=== PATIENT | male | born 1975 | race Caucasian/White ===

== ENCOUNTER 2016-11-18 17:09 | Emergency (ER) | payer OTHER ==
[2016-11-18 18:07] VITALS: BP 153/96
[2016-11-18] MEDS ORDERED: Ketorolac INJ* 60 MG/2 ML VIAL IM ONE (18:36)
--- NOTE | 2016-11-18 19:09 | UC ---
Back Pain HPI - HPI Summary HPI Summary: Patient has had back pain from a herinated disc for the past few years, it has been exacerbated from lots of snow shoveling the past few weeks, he has a hard time working due to the pain and is wearing a back brace for support. he has had steroid shots and doen PT in the past. - History of Current Complaint Chief Complaint: UCBackPain Stated Complaint: LOWER BACK PAIN Time Seen by Provider: 11/18/16 18:25 Hx Obtained From: Patient Onset/Duration: Gradual Onset, Worse Since - 2 weeks Timing: Constant Severity Initially: Moderate Severity Currently: Severe Back Pain: Is Discrete @ - left lumbar Character: Spasmodic, Stiffness Aggravating: Movement, Lifting, Bending Alleviating: Nothing Associated Signs And Symptoms: Positive: Weakness, Pain with Weight Bearing - Risk Factors AAA Risk Factors: Negative TAD Risk Factors: Negative Cauda Equina Risk Factors: Negative Epidural Abscess Risk Factors: Negative - Allergies/Home Medications Allergies/Adverse Reactions: Allergies Allergy/AdvReac Type Severity Reaction Status Date / Time No Known Allergies Allergy Verified 11/18/16 18:01 Home Medications: Home Medications Acetaminophen 2 tab PO Q12HR PRN 11/18/16 [History Confirmed 11/18/16] PMH/Surg Hx/FS Hx/Imm Hx Previously Healthy: Yes - Surgical History Surgical History: Yes Surgery Procedure, Year, and Place: appendectomy - Family History Known Family History: Negative: Hypertension - Social History Alcohol Use: Rare Substance Use Type: None Smoking Status (MU): Never Smoked Tobacco Review of Systems Constitutional: Negative Skin: Negative Eyes: Negative ENT: Negative Respiratory: Negative Cardiovascular: Negative Gastrointestinal: Negative Genitourinary: Negative Motor: Negative Neurovascular: Negative Musculoskeletal: Arthralgia, Decreased ROM, Edema, Myalgia Neurological: Negative Psychological: Negative All Other Systems Reviewed And Are Negative: Yes Physical Exam Triage Information Reviewed: Yes Appearance: Well-Nourished, Ill-Appearing, Pain Distress Vital Signs: Initial Vital Signs Temp 98.4 F 11/18/16 18:02 Pulse 73 11/18/16 18:02 Resp 18 11/18/16 18:02 BP 153/96 11/18/16 18:02 Pulse Ox 99 11/18/16 18:02 Vital Signs Reviewed: Yes Eye Exam: Normal Eyes: Positive: Conjunctiva Clear ENT Exam: Normal ENT: Positive: Normal ENT inspection, Hearing grossly normal, Pharynx normal, TMs normal Dental Exam: Normal Neck exam: Normal Neck: Positive: Supple, Nontender, No Lymphadenopathy Respiratory Exam: Normal Respiratory: Positive: Chest non-tender, Lungs clear, Normal breath sounds Cardiovascular Exam: Normal Cardiovascular: Positive: RRR, No Murmur, Pulses Normal Abdominal Exam: Normal Abdomen Description: Positive: Nontender, No Organomegaly, Soft Bowel Sounds: Positive: Present Musculoskeletal: Positive: Strength Limited @, ROM Limited @ - in lumbar flx and ext, Edema @ - noted over the spinus process around l1 and l2. pain with palpation. left leg weak with weight bearing Neurological Exam: Normal Neurological: Positive: Alert, Muscle Tone Normal Psychological Exam: Normal Skin Exam: Normal Back Pain Course/Dx - Course Course Of Treatment: hx obtained, exam performed, meds reviewed, I stop consulted. xray neg for acute issues, discussed options for pain management and maintainence. referrals given. - Differential Dx/Diagnosis Differential Diagnosis/HQI/PQRI: Herniated Disc, Strain, Sprain Provider Diagnoses: back spasm. OA of facet joints Discharge - Discharge Plan Condition: Stable Disposition: HOME Prescriptions: Cyclobenzaprine TAB* [Flexeril 10 MG TAB*] 10 mg PO TID PRN #28 tab PRN Reason: Spasms Meloxicam [Mobic] 15 mg PO DAILY #30 tab Patient Education Materials: Acute Low Back Pain (ED) Referrals: No Primary Care Phys,NOPCP [Primary Care Provider] - Raquel Lorenzo DO [Doctor of Osteopathy] - Oscar Linder MD [Medical Doctor] - Additional Instructions: take the medication as prescribed, rest as much as possible. Follow up with referrals as you decided which course to take.
--- NOTE | 2016-11-18 19:43 | RAD ---
Indication: Multiple years low back pain radiating to the RIGHT leg. History of disc degeneration. Comparison: November 27, 2014 radiographs. Technique: AP and lateral views lumbar sacral spine. Report: Straightening relative to normal lumbar lordosis. Negative for fracture or spondylolisthesis at any level. Negative for significant disc space narrowing. Minimal vertebral endplate osteophytosis from L3-L4 caudal. Mild facet joint osteoarthritis at L5-S1. Unremarkable paraspinal soft tissue contours. IMPRESSION: Minimal degenerative spondylosis and facet joint osteoarthritis without significant change. Straightening relative to normal lumbar lordosis.
== END 2016-11-18 20:25 | disposition home or self-care (01) ==
LOC: UCCORT 17:09
DX: M62.830 Muscle spasm of back (principal); M47.816 Spondylosis without myelopathy or radiculopathy, lumbar region
CPT/HCPCS: 72100; 96372; 99212; G0463; J1885

== ENCOUNTER 2017-12-24 09:14 | Emergency (ER) | payer MEDICAID, OTHER ==
[2017-12-24 09:58] VITALS: BP 138/78
--- NOTE | 2017-12-24 10:42 | UC ---
FLU HPI - HPI Summary HPI Summary: Started last night with sore throat, cough, headache and muscle aches. - History of Current Complaint Chief Complaint: UCGeneralIllness Stated Complaint: CORDELIA,BODY ACHES Time Seen by Provider: 12/24/17 10:27 Hx Obtained From: Patient Onset/Duration: Sudden Onset, Lasting Days - 1, Worse Since - onset Severity Currently: Moderate Severity Initially: Mild Pain Intensity: 7 Associated Signs & Symptoms: Positive: Myalgia, Cough, Sore Throat, Nasal Congestion, Headache - Allergy/Home Medications Allergies/Adverse Reactions: Allergies Allergy/AdvReac Type Severity Reaction Status Date / Time No Known Allergies Allergy Verified 11/18/16 18:01 PMH/Surg Hx/FS Hx/Imm Hx Previously Healthy: Yes - Surgical History Surgical History: Yes Surgery Procedure, Year, and Place: appendectomy - Family History Known Family History: Positive: Diabetes Negative: Hypertension - Social History Occupation: Employed Full-time Lives: With Family Alcohol Use: None Substance Use Type: Marijuana Substance Use Comment - Amount & Last Used: 2 NIGHTS AGO Smoking Status (MU): Never Smoked Tobacco Review of Systems ENT: Sore Throat Respiratory: Cough Neurological: Headache Is Patient Immunocompromised?: No All Other Systems Reviewed And Are Negative: Yes Physical Exam Triage Information Reviewed: Yes Appearance: No Pain Distress, Well-Nourished, Ill-Appearing Vital Signs: Initial Vital Signs Temp 98.6 F 12/24/17 09:53 Pulse 83 12/24/17 09:53 Resp 15 12/24/17 09:53 BP 138/78 12/24/17 09:53 Pulse Ox 100 12/24/17 09:53 Vital Signs Reviewed: Yes Eyes: Positive: Conjunctiva Inflamed ENT: Positive: Pharynx normal, Nasal congestion, TMs normal Neck exam: Normal Respiratory: Positive: Lungs clear, Wheezing - expiratory wheeze with cough only Cardiovascular Exam: Normal Musculoskeletal Exam: Normal Neurological Exam: Normal Psychological Exam: Normal Skin Exam: Normal Flu Course/Dx - Differential Dx/Diagnosis Differential Diagnosis/HQI/PQRI: Bronchitis, Influenza, Upper Respiratory Infection Provider Diagnoses: Acute URI. Acute bronchospasm Discharge - Sign-Out/Discharge Documenting (check all that apply): Discharge/Admit/Transfer - Discharge Plan Condition: Stable Disposition: HOME Prescriptions: predniSONE TAB* [Deltasone TAB*] 20 mg PO DAILY #18 tab Patient Education Materials: Upper Respiratory Infection (ED), Wheezing (ED), Prednisone (By mouth) Referrals: No Primary Care Phys,NOPCP [Primary Care Provider] - Additional Instructions: COLD-EEZE ZINC LOZENGES CAN HELP YOU GET OVER THE COLD FASTER. GET THE BRAND ONLY, DO NOT GET GENERIC ZINC LOZENGES. NASAL SPRAYS AND DROPS: Afrin in the PUMP/ MIST bottle (Get generic 12 hours nasal decongestant spray). Tilt your head down and look at the floor while doing a strong sniff with the spray. Decongestant nasal sprays and drops often give dramatic relief from congestion. They are often recommended for patients with sinus infection to assist with sinus drainage. Persons with high blood pressure should consult the doctor before using these nasal sprays. Afrin and Philip-Synephrine are common [id number] preparations. They should not be used for more than five days, as "rebound" congestion can occur - - the congestion flares as the drug wears off. A way of dealing with this rebound congestion problem is to medicate only one nostril each time, allowing the other nostril to recover from the medicine' s effects. When you no longer need the drug during the day, spray only one nostril each night. This helps you sleep well without severe rebound congestion. Call the doctor if you develop severe headache, palpitations, or chest pain. - Billing Disposition and Condition Condition: STABLE Disposition: HOME
== END 2017-12-24 11:10 | disposition home or self-care (01) ==
LOC: UCCORT 09:14
DX: J06.9 Acute upper respiratory infection, unspecified (principal); J98.01 Acute bronchospasm
CPT/HCPCS: 87502; 99212; G0463

== ENCOUNTER 2018-09-06 16:59 | Emergency (ER) | payer OTHER ==
[2018-09-06 17:14] VITALS: BP 164/92
--- NOTE | 2018-09-06 17:35 | ED ---
HPI Chest Pain - HPI Summary HPI Summary: 43 yr old male with the complaint of chest pain. Quality of the pain is an ache. Constant. Presently 12/05. Non radiating. Onset of symptoms 3 pm today. He went out to shovel snow, and developed CP. Location left side lower chest. Associated with feeling dizzy and light headed. Denies SOB, palpitations. No fever or chills or cough. - History of Current Complaint Chief Complaint: UCChestPain Time Seen by Provider: 09/06/18 17:01 Pain Intensity: 2 - Allergy/Home Medications Allergies/Adverse Reactions: Allergies Allergy/AdvReac Type Severity Reaction Status Date / Time No Known Allergies Allergy Verified 09/06/18 17:02 Home Medications: Home Medications Ibuprofen TAB* [Advil TAB*] 400 mg PO Q6H PRN 09/06/18 [History Confirmed ] PMH/Surg Hx/FS Hx/Imm Hx Cardiovascular History: Denies: Hx Pacemaker/ICD Musculoskeletal History: Denies: Hx Scoliosis Sensory History: Denies: Hx Hearing Aid Neurological History: Denies: Hx Headaches, Other Neuro Impairments/Disorders Psychiatric History: Denies: Hx Panic Disorder - Surgical History Surgery Procedure, Year, and Place: appendectomy Infectious Disease History: No Infectious Disease History: Denies: Traveled Outside the [place] in Last 30 Days - Family History Known Family History: Positive: Diabetes Negative: Hypertension - Social History Alcohol Use: None Substance Use Type: Reports: None Substance Use Comment - Amount & Last Used: 2 NIGHTS AGO Smoking Status (MU): Former Smoker Type: Cigarettes Review of Systems Constitutional: Negative All Other Systems Reviewed And Are Negative: Yes Physical Exam Triage Information Reviewed: Yes Vital Signs On Initial Exam: Initial Vitals Temp Pulse Resp BP Pulse Ox 99.2 F 69 18 164/92 100 09/06/18 17:03 09/06/18 17:03 09/06/18 17:03 09/06/18 17:03 09/06/18 17:03 Vital Signs Reviewed: Yes Appearance: Positive: Well-Appearing, No Pain Distress Head/Face: Positive: Normal Head/Face Inspection Eyes: Positive: EOMI ENT: Positive: Normal ENT inspection Neck: Positive: Nontender Respiratory/Lung Sounds: Positive: Clear to Auscultation, Breath Sounds Present Cardiovascular: Positive: RRR. Negative: Murmur Abdomen Description: Negative: Distended Musculoskeletal: Positive: Strength/ROM Intact Neurological: Positive: Sensory/Motor Intact, Alert, Oriented to Person Place, Time, CN Intact II-III, Normal Gait, Speech Normal Psychiatric: Positive: Normal - [place] Coma Scale Best Eye Response: 4 - Spontaneous Best Motor Response: 6 - Obeys Commands Best Verbal Response: 5 - Oriented Coma Scale Total: 15 Diagnostics - Vital Signs Vital Signs Temp Pulse Resp BP Pulse Ox 09/06/18 17:03 99.2 F 69 18 164/92 100 - Laboratory Lab Statement: Any lab studies that have been ordered have been reviewed, and results considered in the medical decision making process. - EKG 09/06/18 Cardiac Rate: NL EKG Rhythm: Sinus Rhythm ST Segment: Normal Ectopy: None - No STEMI Chest Pain Course/Dx - Course Course Of Treatment: 43 yr old male with chest pain shoveling snow this afternoon. He signed out AMA and refused transfer by ambulance to the ER for further evaluation. - Diagnoses Provider Diagnoses: Chest pain, Hypertension Discharge - Sign-Out/Discharge Documenting (check all that apply): Patient Departure All imaging exams completed and their final reports reviewed: No Studies - Discharge Plan Condition: Stable Disposition: AGAINST MEDICAL ADVICE Referrals: No Primary Care Phys,NOPCP [Primary Care Provider] - - Billing Disposition and Condition Condition: STABLE Disposition: Against Medical Advice
== END 2018-09-06 17:33 | disposition left against medical advice (07) ==
LOC: UCCORT 16:59
DX: R07.9 Chest pain, unspecified (principal); Z87.891 Personal history of nicotine dependence; I10 Essential (primary) hypertension; Y93.H1 Activity, digging, shoveling and raking
CPT/HCPCS: 93005; 99212; G0463

== ENCOUNTER 2018-09-14 19:47 | Emergency (ER) | payer OTHER ==
[2018-09-14 20:01] VITALS: BP 147/98
--- NOTE | 2018-09-14 20:38 | UC ---
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 Hurts worse with swallowing and coughing. Some sinus congestion. Productive cough. " -no wheezing. no fever. no sinus pain. no ear pain. -has had strep but does not recall sx. 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 wants to make sure he gets evaluated bc of her. -admits to taking advil regularly. - History of Current Complaint Chief Complaint: UCGeneralIllness Stated Complaint: ST Time Seen by Provider: 09/14/18 20:25 Pain Intensity: 6 - Allergies/Home Medications Allergies/Adverse Reactions: Allergies Allergy/AdvReac Type Severity Reaction Status Date / Time No Known Allergies Allergy Verified 09/14/18 19:56 PMH/Surg Hx/FS Hx/Imm Hx Previously Healthy: Yes - Surgical History Surgical History: Yes Surgery Procedure, Year, and Place: appendectomy - Family History Known Family History: Positive: Diabetes Negative: Hypertension - Social History Alcohol Use: None Substance Use Type: None Substance Use Comment - Amount & Last Used: 2 NIGHTS AGO Smoking Status (MU): Former Smoker Type: Cigarettes When Did the Patient Quit Smoking/Using Tobacco: AGE 30 Review of Systems All Other Systems Reviewed And Are Negative: Yes Constitutional: Positive: Negative Skin: Positive: Negative Eyes: Positive: Negative ENT: Positive: Sore Throat, Sinus Congestion Respiratory: Positive: Cough Cardiovascular: Positive: Negative Gastrointestinal: Positive: Negative Genitourinary: Positive: Negative Motor: Positive: Negative Neurovascular: Positive: Negative Musculoskeletal: Positive: Negative Neurological: Positive: Negative Psychological: Positive: Negative Is Patient Immunocompromised?: No Physical Exam Triage Information Reviewed: Yes Appearance: Well-Appearing, No Pain Distress, Well-Nourished Vital Signs: Initial Vital Signs Temp 97.8 F 09/14/18 19:56 Pulse 69 09/14/18 19:56 Resp 16 09/14/18 19:56 BP 147/98 09/14/18 19:56 Pulse Ox 99 09/14/18 19:56 Vital Signs Reviewed: Yes ENT Exam: Normal ENT: Positive: Pharyngeal erythema - mild. no exudate. ? mild pND, TMs normal. Negative: TM bulging, TM dull, TM red, Tonsillar swelling, Tonsillar exudate, Hoarse voice, Sinus tenderness Dental Exam: Normal Neck exam: Normal Neck: Positive: Supple, Nontender, No Lymphadenopathy Respiratory Exam: Normal Respiratory: Positive: Lungs clear, Normal breath sounds, No respiratory distress, No accessory muscle use. Negative: Crackles, Rhonchi, Stridor, Wheezing Cardiovascular Exam: Normal Cardiovascular: Positive: RRR, No Murmur, Pulses Normal Abdominal Exam: Normal Musculoskeletal Exam: Normal Neurological Exam: Normal Psychological Exam: Normal Skin Exam: Normal UC Diagnostic Evaluation - Laboratory O2 Sat by Pulse Oximetry: 99 Respiratory Course/Dx - Course Course Of Treatment: rapid strep done (more so bc 5 wks old granddtr at home) to r/o. - Differential Dx/Diagnosis Differential Diagnosis/HQI/PQRI: Bronchitis, Laryngitis, Sinusitis Provider Diagnosis: Pharyngitis, Elevated blood pressure reading in office without diagnosis of hypertension Discharge - Sign-Out/Discharge Documenting (check all that apply): Patient Departure All imaging exams completed and their final reports reviewed: No Studies - Discharge Plan Condition: Stable Disposition: HOME Patient Education Materials: Pharyngitis (ED), Hypertension (ED) Referrals: No Primary Care Phys,NOPCP [Primary Care Provider] - [facility] [Provider Group] Additional Instructions: -You should make sure to have your blood pressure followed up with a primary care physician as it is elevated today. You should avoid cold/cough medicines with decongestants and medicines like ibuprofen, aleve, motrin because they can raise your blood pressure. We are not diagnosing you with high blood pressure as it needs 3 readings on separate occasions to make the diagnosis. We are giving you information about the diagnosis of hypertension for your information. Uncontrolled blood pressure can lead to heart disease, kidney disease, stoke and other problems if untreated. - Billing Disposition and Condition Condition: STABLE Disposition: Home
== END 2018-09-14 21:15 | disposition home or self-care (01) ==
LOC: UCCORT 19:47
DX: J02.9 Acute pharyngitis, unspecified (principal); R03.0 Elevated blood-pressure reading, without diagnosis of hypertension; Z87.891 Personal history of nicotine dependence
CPT/HCPCS: 87651; 99211; G0463

== ENCOUNTER 2019-06-28 13:21 | Emergency (ER) | payer OTHER ==
[2019-06-28 13:59] VITALS: BP 124/77
--- NOTE | 2019-06-28 14:39 | ED ---
Throat Pain/Nasal Congestion - HPI Summary HPI Summary: 43 yr old with the complaint of painful lymp node right upper cervical chain. It has been there for three days, but today he states it is worse. He states he has had mild cold symptoms. No drooling. No fever or other complaints. - History of Current Complaint Chief Complaint: UCGeneralIllness Time Seen by Provider: 06/28/19 14:01 - Allergies/Home Medications Allergies/Adverse Reactions: Allergies Allergy/AdvReac Type Severity Reaction Status Date / Time No Known Allergies Allergy Verified 06/28/19 13:56 PMH/Surg Hx/FS Hx/Imm Hx Cardiovascular History: Denies: Hx Pacemaker/ICD Musculoskeletal History: Denies: Hx Scoliosis Sensory History: Denies: Hx Hearing Aid Neurological History: Denies: Hx Headaches, Other Neuro Impairments/Disorders Psychiatric History: Denies: Hx Panic Disorder - Surgical History Surgery Procedure, Year, and Place: appendectomy Infectious Disease History: No Infectious Disease History: Denies: Traveled Outside the [place] in Last 30 Days - Family History Known Family History: Positive: Diabetes Negative: Hypertension - Social History Occupation: Employed Full-time Alcohol Use: None Substance Use Type: Reports: None Substance Use Comment - Amount & Last Used: 2 NIGHTS AGO Smoking Status (MU): Former Smoker Type: Cigarettes Review of Systems Constitutional: Negative Positive: Other - painful lymph node All Other Systems Reviewed And Are Negative: Yes Physical Exam Triage Information Reviewed: Yes Vital Signs On Initial Exam: Initial Vitals Temp Pulse Resp BP Pulse Ox 97.7 F 61 14 124/77 100 06/28/19 13:56 06/28/19 13:56 06/28/19 13:56 06/28/19 13:56 06/28/19 13:56 Vital Signs Reviewed: Yes Appearance: Positive: Well-Appearing, No Pain Distress Skin: Positive: Warm, Skin Color Reflects Adequate Perfusion Head/Face: Positive: Normal Head/Face Inspection Eyes: Positive: EOMI ENT: Positive: Pharyngeal erythema, Nasal congestion, TMs normal Neck: Positive: Tenderness @ - right upper anterior cervical chain Respiratory/Lung Sounds: Positive: Clear to Auscultation, Breath Sounds Present Cardiovascular: Positive: RRR. Negative: Murmur Abdomen Description: Negative: Distended Musculoskeletal: Positive: Strength/ROM Intact Neurological: Positive: Sensory/Motor Intact, Alert, Oriented to Person Place, Time, CN Intact II-III, Speech Normal Psychiatric: Positive: Normal Diagnostics - Vital Signs Vital Signs Temp Pulse Resp BP Pulse Ox 06/28/19 13:56 97.7 F 61 14 124/77 100 - Laboratory Lab Results: Lab Results 06/28/19 Range/Units 14:20 Group A Strep Rapid Negative (Negative) Lab Statement: Any lab studies that have been ordered have been reviewed, and results considered in the medical decision making process. EENT Course/Dx - Course Course Of Treatment: neg rapid strep. Rx with augmentin for lymphangitis. FU with ENT. - Diagnoses Provider Diagnoses: Lymphangitis Discharge ED - Sign-Out/Discharge Documenting (check all that apply): Patient Departure All imaging exams completed and their final reports reviewed: No Studies - Discharge Plan Condition: Good Disposition: HOME Patient Education Materials: Lymphangitis (ED) Referrals: No Primary Care Phys,NOPCP [Primary Care Provider] - [facility] [place] [facility] [place] [facility] [place]Outside] Teto Spain MD [Medical Doctor] - 4 Days - Billing Disposition and Condition Condition: GOOD Disposition: Home
== END 2019-06-28 14:45 | disposition home or self-care (01) ==
LOC: UCCORT 13:21
DX: I89.1 Lymphangitis (principal); Z87.891 Personal history of nicotine dependence
CPT/HCPCS: 87651; 99211; G0463